=== PATIENT | male | born 1980 | race Two or more races ===

== ENCOUNTER 2018-06-14 13:41 | Outpatient (CLI) | payer OTHER | END 2018-06-14 14:39 | disposition home or self-care (01) | LOC: RAD 13:41 | DX: M17.11 Unilateral primary osteoarthritis, right knee (principal) ==

== ENCOUNTER 2019-05-16 10:43 | Outpatient (CLI) | payer OTHER | END 2019-05-16 10:44 | disposition home or self-care (01) | LOC: RAD 10:43 | DX: E04.2 Nontoxic multinodular goiter (principal); J20.8 Acute bronchitis due to other specified organisms ==

== ENCOUNTER → 2019-09-02 | Outpatient (CLI) | payer OTHER | END | disposition home or self-care (01) | LOC: SONOGRAMA 08:04 → MAMO-SONO 10:45 | PROVIDERS: ATTEND Internal Medicine Gastroenterology | DX: R74.0 Nonspecific elevation of levels of transaminase and lactic acid dehydrogenase [LDH] (principal) ==

== ENCOUNTER 2020-03-31 15:53 | Outpatient (CLI) | payer OTHER | END 2020-03-31 16:05 | disposition home or self-care (01) | LOC: RAD 15:53 | PROVIDERS: ATTEND Physical Medicine & Rehabilitation | DX: M17.11 Unilateral primary osteoarthritis, right knee (principal) ==

== ENCOUNTER → 2021-03-07 | Outpatient (CLI) | payer OTHER | END | disposition home or self-care (01) | LOC: RAD 10:50 | DX: M25.561 Pain in right knee (principal) ==

== ENCOUNTER 2021-08-10 08:46 | Outpatient (CLI) | payer OTHER | END 2021-08-10 09:55 | disposition home or self-care (01) | LOC: RAD 08:46 | PROVIDERS: ATTEND Surgery | DX: Z01.818 Encounter for other preprocedural examination (principal); D23.61 Other benign neoplasm of skin of right upper limb, including shoulder ==